=== PATIENT | male | born 1960 | race Caucasian/White ===

== ENCOUNTER → 2018-08-09 | Outpatient (CLI) | payer BC | LOC: CARD 11:02 | PROVIDERS: ATTEND Internal Medicine Cardiovascular Disease | DX: R06.09 Other forms of dyspnea (principal); R07.89 Other chest pain; I10 Essential (primary) hypertension; E66.9 Obesity, unspecified; I34.0 Nonrheumatic mitral (valve) insufficiency; Z82.49 Family history of ischemic heart disease and other diseases of the circulatory system | CPT/HCPCS: 93306 ==

== ENCOUNTER → 2018-08-10 | Outpatient (CLI) | payer BC ==
[~2018-08-10] VITALS: Ht 170.2 cm; Wt 92.1 kg
[~2018-08-10] MED LIST: CATHETER FLUSH 10 ML SYR IV PRN; REGADENOSON 0.4 MG/5 ML SYR (LEXISCAN) IV ONE
[2018-08-10 13:09] VITALS: BP 155/91
[2018-08-10 13:11] VITALS: BP 133/73
--- NOTE | 2018-08-10 20:17 | STRESS TEST ---
DATE OF SERVICE: 08/10/2018 LEXISCAN MYOVIEW STRESS TEST REPORT REFERRING PHYSICIAN: Tamela Prather MD INDICATION: Dyspnea. Baseline heart rate is 71. Baseline blood pressure 155/91. Baseline EKG is sinus rhythm with no ischemic changes. In summary, the patient was injected with 10.83 mCi of technetium-99 Myoview and the resting images were obtained. Then, the patient received 0.4 mg of Lexiscan followed by 30.4 mCi of technetium-99 Myoview. Throughout the test, there were no EKG changes. The resting and stress images were reviewed and compared in the short axis, horizontal long axis, and vertical long axis views. Review of the images showed diaphragmatic attenuation with motion artifact, mild decreased uptake at the inferoapical segment with mild reversibility, no significant ischemia or infarction was seen. SSS is 4, SDS is 4, TID value 0.99. On the gated images, the left ventricle appeared to be in normal size with normal contractility. Calculated ejection fraction 57%. Incidental finding, prominent right ventricle with normal right ventricular contractility. CONCLUSION: 1. The patient tolerated Lexiscan well. 2. No diaphragmatic attenuation with no significant ischemia or infarction on SPECT images. 3. Normal left ventricular size with normal contractility. Calculated ejection fraction 57%. 4. Prominent right ventricle with normal contractility noted on this study. Job ID: [id number] DocumentID: [id number] Dictated Date: 08/10/2018 15:22:50 Chief Deputy Date: 08/10/2018 20:16:33 Dictated By: JU SULLIVAN MD
== END ==
LOC: CARD 10:59 → EDUNIT# 12:00
PROVIDERS: ATTEND Internal Medicine Cardiovascular Disease
DX: R06.09 Other forms of dyspnea (principal); R07.89 Other chest pain; I10 Essential (primary) hypertension; E66.9 Obesity, unspecified; Z68.31 Body mass index [BMI] 31.0-31.9, adult; Z82.49 Family history of ischemic heart disease and other diseases of the circulatory system
CPT/HCPCS: 78452; 93017

== ENCOUNTER → 2018-11-25 | Outpatient (CLI) | payer BC | LOC: RT 12:32 | PROVIDERS: ATTEND Family Medicine | DX: R06.02 Shortness of breath (principal) | CPT/HCPCS: 94060; 94726; 94729 ==

== ENCOUNTER 2020-07-24 11:17 | Emergency (ER) | payer BC ==
[~2020-07-24] VITALS: Ht 175.3 cm; Wt 94.3 kg
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
[2020-07-24] MEDS ORDERED: ASPIRIN 81 MG CHEW (CHILDREN'S ASA) PO ONE (11:45)
[2020-07-24 11:51] LABS: BASOPHILS % (AUTO) 1 % (0-10); EOSINOPHILS % (AUTO) 2 % (0-10); HEMATOCRIT 39 % (40-54); HEMOGLOBIN 13.1 G/DL (13.3-17.7); LYMPHOCYTES % (AUTO) 21 % (12-44); MEAN CORPUSCULAR HEMOGLOBIN 30 PG (25-34); MEAN CORPUSCULAR HGB CONC 33 G/DL (32-36); MEAN CORPUSCULAR VOLUME 90 FL (80-99); MEAN PLATELET VOLUME 9.7 FL (7.4-10.4); MONOCYTES % (AUTO) 8 % (0-12); NEUTROPHILS % (AUTO) 68 % (42-75); PLATELET COUNT 281 10^3/uL (130-400); WHITE BLOOD COUNT 7.1 10^3/uL (4.3-11.0)
[2020-07-24 11:52] LABS: BASOPHILS # (AUTO) 0.1 10^3/uL (0.0-0.1); EOSINOPHILS # (AUTO) 0.1 10^3/uL (0.0-0.3); LYMPHOCYTES # (AUTO) 1.5 X 10^3 (1.0-4.0); MONOCYTES # (AUTO) 0.6 X 10^3 (0.0-1.0); NEUTROPHILS # (AUTO) 4.9 X 10^3 (1.8-7.8)
--- NOTE | 2020-07-24 11:55 | Diagnostic Imaging Report ---
CLINICAL INDICATION: Patient with left-sided chest pain. EXAM: Portable chest x-ray upright view. COMPARISONS: None. FINDINGS: Lungs/pleura: Lungs are clear. There is no pneumothorax. There is no pleural effusion. Mediastinum: Unremarkable. Pulmonary vasculature: Unremarkable. Heart: Unremarkable. Bones/extrathoracic soft tissue: There are hypertrophic spurs involving the thoracic spine. Bone anchors are seen overlying the right proximal humeral head region. IMPRESSION: There is no radiographic evidence of acute cardiopulmonary process. Dictated by: Dictated on workstation # [id number]
[2020-07-24 11:59] LABS: INR 0.9 (0.8-1.4); PROTHROMBIN TIME PATIENT 12.2 SEC (12.2-14.7)
[2020-07-24 12:13] LABS: BILIRUBIN,TOTAL 0.4 MG/DL (0.1-1.0); BUN/CREATININE RATIO 31; CALCIUM 8.9 MG/DL (8.5-10.1); CARBON DIOXIDE 23 MMOL/L (21-32); CHLORIDE 106 MMOL/L (98-107); CREATININE SERUM 0.77 MG/DL (0.60-1.30); GFR ESTIMATED > 60; GLUCOSE 117 MG/DL (70-105); MAGNESIUM 1.8 MG/DL (1.6-2.4); POTASSIUM 4.4 MMOL/L (3.6-5.0); SODIUM 140 MMOL/L (135-145)
[2020-07-24 12:14] LABS: ALANINE AMINOTRANSFERASE 16 U/L (0-55); ALBUMIN 4.2 GM/DL (3.2-4.5); ALKALINE PHOSPHATASE 91 U/L (40-136); TOTAL PROTEIN 6.6 GM/DL (6.4-8.2)
[2020-07-24 12:39] VITALS: BP 153/72
== END 2020-07-24 12:42 | disposition home or self-care (01) ==
LOC: EDUNIT# 11:17 → ER FS 11:19
DX: R07.9 Chest pain, unspecified (principal); I10 Essential (primary) hypertension; Z88.5 Allergy status to narcotic agent
CPT/HCPCS: 36415; 71045; 80053; 83735; 83874; 84484; 85025; 85610; 85730; 93005; 93041

== ENCOUNTER 2020-09-25 12:49 | Emergency (ER) | payer BC ==
[~2020-09-25] VITALS: Ht 175 cm; Wt 94.3 kg
[2020-09-25 13:11] LABS: BASOPHILS # (AUTO) 0.1 10^3/uL (0.0-0.1); BASOPHILS % (AUTO) 1 % (0-10); EOSINOPHILS # (AUTO) 0.3 10^3/uL (0.0-0.3); EOSINOPHILS % (AUTO) 3 % (0-10); HEMATOCRIT 38 % (40-54); HEMOGLOBIN 12.8 g/dL (13.3-17.7); LYMPHOCYTES # (AUTO) 1.8 10^3/uL (1.0-4.0); LYMPHOCYTES % (AUTO) 22 % (12-44); MEAN CORPUSCULAR HEMOGLOBIN 30 pg (25-34); MEAN CORPUSCULAR HGB CONC 34 g/dL (32-36); MEAN CORPUSCULAR VOLUME 90 fL (80-99); MEAN PLATELET VOLUME 9.8 fL (9.0-12.2); MONOCYTES # (AUTO) 0.5 10^3/uL (0.0-1.0); MONOCYTES % (AUTO) 7 % (0-12); NEUTROPHILS # (AUTO) 5.4 10^3/uL (1.8-7.8); NEUTROPHILS % (AUTO) 67 % (42-75); PLATELET COUNT 253 10^3/uL (130-400); WHITE BLOOD COUNT 8.1 10^3/uL (4.3-11.0)
[2020-09-25 13:24] LABS: ALBUMIN 4.2 GM/DL (3.2-4.5)
[2020-09-25 13:26] LABS: CALCIUM 9.1 MG/DL (8.5-10.1)
[2020-09-25 13:27] LABS: TOTAL PROTEIN 7.1 GM/DL (6.4-8.2)
[2020-09-25 13:29] LABS: BILIRUBIN,TOTAL 0.3 MG/DL (0.1-1.0)
[2020-09-25 13:30] LABS: CREATININE SERUM 1.75 MG/DL (0.60-1.30)
[2020-09-25 13:33] LABS: MAGNESIUM 2.3 MG/DL (1.6-2.4)
[2020-09-25 13:42] LABS: PROTHROMBIN TIME PATIENT 13.2 SEC (12.2-14.7)
--- NOTE | 2020-09-25 13:42 | Diagnostic Imaging Report ---
INDICATION: Chest pain Frontal chest obtained at 0130 p.m. and compared to 07/24/2020 Heart and mediastinal silhouette are normal in appearance. Lungs are clear. There is no pneumothorax or pleural fluid. IMPRESSION: Negative chest. Dictated by: Dictated on workstation # [id number]
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
--- NOTE | 2020-09-25 14:21 | Diagnostic Imaging Report ---
CLINICAL INDICATION: Patient with bilateral neck pain for 2 weeks. No history of trauma. Patient has back and neck pain for 2 weeks. EXAM: Axial CT scan of the cervical spine performed without IV contrast. Sagittal and coronal reformatted images are created. Auto Exposure Controls were utilized during the CT exam to meet ALARA standards for radiation dose reduction. COMPARISON: None. FINDINGS: There is no acute cervical spine fracture or dislocation. Small anterior cervical vertebral body spurs. There is moderate left C3-C4 neural foramen narrowing due to uncinate spurs and mild facet arthropathy. There is mild bilateral C4-C5 neural foramen narrowing due to anterior body spurs and mild facet arthropathy. The remainder of the cervical spine shows no other significant central canal or neural foramen narrowing. There is no significant paraspinal soft tissue abnormality. Scarring. IMPRESSION: 1: There is no acute cervical spine fracture or dislocation. 2: Cervical spine degenerative disease, as described above. Dictated by: Dictated on workstation # [id number]
[2020-09-25 16:23] VITALS: BP 105/64
== END 2020-09-25 16:21 | disposition home or self-care (01) ==
LOC: EDUNIT# 12:49 → ER 12:51
DX: M54.2 Cervicalgia (principal); R07.9 Chest pain, unspecified; N28.9 Disorder of kidney and ureter, unspecified; J44.9 Chronic obstructive pulmonary disease, unspecified; I10 Essential (primary) hypertension
CPT/HCPCS: 36415; 71045; 72125; 80053; 83735; 83874; 84484; 85025; 85610; 85730; 93005; 93041

== ENCOUNTER → 2020-09-25 | Outpatient (CLI) | payer BC ==
[2020-09-25 10:39] LABS: HEMATOCRIT 41 % (40-54); HEMOGLOBIN 13.6 G/DL (13.3-17.7); MEAN CORPUSCULAR HEMOGLOBIN 29 PG (25-34); MEAN CORPUSCULAR VOLUME 89 FL (80-99); WHITE BLOOD COUNT 7.5 10^3/uL (4.3-11.0)
[2020-09-25 10:40] LABS: BASOPHILS # (AUTO) 0.1 10^3/uL (0.0-0.1); BASOPHILS % (AUTO) 1 % (0-10); EOSINOPHILS # (AUTO) 0.2 10^3/uL (0.0-0.3); EOSINOPHILS % (AUTO) 3 % (0-10); LYMPHOCYTES # (AUTO) 1.7 X 10^3 (1.0-4.0); LYMPHOCYTES % (AUTO) 23 % (12-44); MEAN PLATELET VOLUME 9.9 FL (7.4-10.4); MONOCYTES # (AUTO) 0.4 X 10^3 (0.0-1.0); MONOCYTES % (AUTO) 6 % (0-12); NEUTROPHILS % (AUTO) 67 % (42-75); PLATELET COUNT 301 10^3/uL (130-400)
[2020-09-25 10:41] LABS: MEAN CORPUSCULAR HGB CONC 33 G/DL (32-36)
[2020-09-25 10:56] LABS: SODIUM 139 MMOL/L (135-145)
[2020-09-25 10:57] LABS: CARBON DIOXIDE 17 MMOL/L (21-32); CHLORIDE 110 MMOL/L (98-107); POTASSIUM 5.3 MMOL/L (3.6-5.0)
[2020-09-25 10:58] LABS: ALKALINE PHOSPHATASE 87 U/L (40-136); BILIRUBIN,TOTAL 0.3 MG/DL (0.1-1.0); BUN/CREATININE RATIO 32; CALCIUM 9.5 MG/DL (8.5-10.1); CREATININE SERUM 1.82 MG/DL (0.60-1.30); GFR ESTIMATED 38; GLUCOSE 104 MG/DL (70-105)
[2020-09-25 10:59] LABS: ALANINE AMINOTRANSFERASE 10 U/L (0-55); ALBUMIN 4.4 GM/DL (3.2-4.5); TOTAL PROTEIN 7.3 GM/DL (6.4-8.2)
== END ==
LOC: LAB FS 09:55
PROVIDERS: ATTEND Family Medicine
DX: M54.9 Dorsalgia, unspecified (principal); I95.9 Hypotension, unspecified; R53.83 Other fatigue
CPT/HCPCS: 36415; 80053; 82553; 83874; 84484; 85025